=== PATIENT | female | born 1930 | race Caucasian/White ===

== ENCOUNTER 2019-02-03 19:53 | Emergency (ER) | payer OTHER, MEDICAID ==
[~2019-02-03] VITALS: Ht 167.6 cm; Wt 59.0 kg
--- NOTE | 2019-02-03 20:00 | NUR ---
ED Nurse Note: PT had syncopal episode while on the toilet. unwitnessed, did not hit head. From [facility]. Pt is AO x 2 times, VSS, on room air no distress. REBEKAH seen Pt at bedside.
--- NOTE | 2019-02-03 20:26 | NUR ---
ED Nurse Note: Lab called for assist with draw.
--- NOTE | 2019-02-03 21:45 | NUR ---
ED Nurse Note: Pt is DNR and comfort care status, Lab order canceled.
[2019-02-03 22:02] VITALS: BP 131/66
--- NOTE | 2019-02-03 22:22 | NUR ---
ED Nurse Note: Report given to SNF RN Raul Pt will return back SNF.
[2019-02-03 23:59] VITALS: BP 154/83
--- NOTE | 2019-02-04 | NUR ---
ED Nurse Note: EMT [employer] picker/puller Pt back to SNF. Report given to EMT Berry, Pt's belongings given to EMT.
--- NOTE | 2019-02-04 00:02 | Emergency Room Report ---
History of Present Illness General Chief Complaint: Syncope Source: EMS Present Illness HPI Patient is a 88 year old female who presented after syncopal episode. Patient had been noted to be less responsive. She had prior history of metastatic breast cancer. Per patient's paperwork patient had previously requested comfort measures only and no artificial nutrition.History was limited by mental status. Allergies: Coded Allergies: No Known Allergies (Unverified , 02/03/19) Patient History Past Medical History: see triage record Now: No Reviewed Nursing Documentation: PMH: Agreed; PSxH: Agreed Nursing Documentation-PMH Past Medical History: No History, Except For History Of Psychiatric Problem: Yes - anxiety, dementia, depression Review of Systems All Other Systems: limited - by mental status Physical Exam Vital Signs Date Time Temp Pulse Resp B/P (MAP) Pulse Ox O2 Delivery O2 Flow Rate FiO2 02/03/19 19:46 97.9 72 18 129/52 (77) 95 Room Air General Appearance: mild distress, Chronically Ill ENT: dry mucus membranes Neck: limited range of motion Respiratory: normal inspection, no accessory muscle use, decreased breath sounds Cardiovascular #1: normal inspection, no edema Gastrointestinal: normal inspection, soft Musculoskeletal: normal inspection Neurologic: normal inspection, responsive Psychiatric: normal inspection Skin: no rash Medical Decision Making Diagnostic Impression: Primary Impression: Syncope Additional Impressions: Dehydration Metastasis from breast cancer ER Course Patient presented for syncopal episode. Per patient POLST patient was comfort measures only. Patient does not appear in any acute distress. She was noted to be somewhat somnolent. Patient will be discharged back to facility . She is to return if needs cannot be met at facility. Last Vital Signs Date Time Temp Pulse Resp B/P (MAP) Pulse Ox O2 Delivery O2 Flow Rate FiO2 02/03/19 22:02 98.4 69 18 131/66 98 Room Air Status: improved Disposition: XFER SNF Condition: Serious Referrals: Phillip Renteria MD (PCP) Patient Instructions: Syncope Additional Instructions: Return if comfort measures cannot be met in facility Luis F Jones MD Feb 04, 2019 00:02
[2019-02-04 00:04] VITALS: BP 154/83
== END 2019-02-04 00:08 ==
LOC: EDBD 19:53 → EMR 20:29
DX: C50.919 Malignant neoplasm of unspecified site of unspecified female breast (principal); C79.9 Secondary malignant neoplasm of unspecified site; R55 Syncope and collapse; E86.0 Dehydration; F41.9 Anxiety disorder, unspecified; F32.9 Major depressive disorder, single episode, unspecified; F03.90 Unspecified dementia, unspecified severity, without behavioral disturbance, psychotic disturbance, mood disturbance, and anxiety
CPT/HCPCS: 80053; 84443; 85610; 85730; 99284

== ENCOUNTER 2019-10-27 20:04 | Emergency (ER) | payer MEDICARE, MEDICAID ==
[~2019-10-27] VITALS: Ht 160 cm; Wt 59.0 kg
[2019-10-27 20:10] VITALS: BP 110/48
[2019-10-27] MEDS ORDERED: DEPAKOTE250 MG PO (20:19)
[2019-10-27] MEDS ORDERED: ATORVASTATIN CA40 MG ORAL (20:19)
[2019-10-27] MEDS ORDERED: COLACE100 MG ORAL (20:19)
[2019-10-27] MEDS ORDERED: ASPIR 8181 MG ORAL (20:19)
[2019-10-27] MEDS ORDERED: LISINOPRIL10 MG ORAL (20:19)
[2019-10-27] MEDS ORDERED: FERROUS SULFAT325 MG ORAL (20:19)
[2019-10-27] MEDS ORDERED: LEXAPRO10 MG ORAL (20:19)
[2019-10-27 21:11] LABS: BASOPHILS % (AUTO) 0.8 % (0.0-2.0); EOSINOPHILS % (AUTO) 0.2 % (0.0-3.0); HEMATOCRIT 33.6 % (37.0-47.0); LYMPHOCYTES % (AUTO) 18.7 % (20.0-45.0); MEAN CORPUSCULAR VOLUME 82 FL (80-99); MONOCYTES % (AUTO) 10.4 % (1.0-10.0); NEUTROPHILS % (AUTO) 69.9 % (45.0-75.0); PLATELET COUNT 200 K/UL (150-450); RED BLOOD COUNT 4.11 M/UL (4.20-5.40); RED CELL DISTRIBUTION WIDTH 15.6 % (11.6-14.8); WHITE BLOOD COUNT 5.8 K/UL (4.8-10.8)
[2019-10-27 21:27] LABS: ANION GAP 10 mmol/L (5-15); BLOOD UREA NITROGEN 31 mg/dL (7-18); CARBON DIOXIDE 26 MMOL/L (21-32); CHLORIDE 102 MMOL/L (98-107); CREATININE 2.2 MG/DL (0.55-1.30); POTASSIUM 4.7 MMOL/L (3.5-5.1); SODIUM 138 MMOL/L (136-145)
[2019-10-27 21:39] LABS: BILIRUBIN, URINE NEGATIVE (NEGATIVE); GLUCOSE, URINE (UA) NEGATIVE (NEGATIVE); KETONES,URINE 2+ (NEGATIVE); LEUKOCYTE ESTERASE ,URINE 2+ (NEGATIVE); NITRITE,URINE NEGATIVE (NEGATIVE); PH,URINE 5 (4.5-8.0); PROTEIN,URINE 2+ (NEGATIVE); UROBILINOGEN,URINE NORMAL MG/DL (0.0-1.0)
[2019-10-27 21:40] LABS: APPEARANCE,URINE SLIGHTLY CLOUDY; COLOR,URINE YELLOW
[2019-10-27 21:41] LABS: ALANINE AMINOTRANSFERASE 12 U/L (12-78); ALBUMIN 2.6 G/DL (3.4-5.0); ALBUMIN/GLOBULIN RATIO 0.6 (1.0-2.7); ALKALINE PHOSPHATASE 56 U/L (46-116); ASPARTATE AMINO TRANSFERASE 40 U/L (15-37); BILIRUBIN,TOTAL 0.6 MG/DL (0.2-1.0); CKMB 2.7 NG/ML (0.0-3.6); CREATINE KINASE 162 U/L (26-308)
[2019-10-27 22:00] VITALS: BP 130/65
[2019-10-27] MEDS ORDERED: Azithromycin 500 MG in NS 275 ML IV ONE (22:00)
[2019-10-27] MEDS ORDERED: Hydroxychloroquine Fact Sheet MISC ONE ×2 (22:15→23:00)
[2019-10-27 23:00] VITALS: BP 140/75
[2019-10-27] MEDS ORDERED: cefTRIAXone 1 GM in NS 55 ML IVPB ONE (23:00)
--- NOTE | 2019-10-27 23:37 | Emergency Room Report ---
History of Present Illness General Chief Complaint: Altered Level of Consciousness Source: Patient, Family Member Present Illness HPI Patient is an 89-year-old female brought in by EMS after increased altered level of consciousness and difficulty with breathing. Patient had been brought in from [facility]. Prior history of chronic debilitation previously been comfort care only per paperwork. Patient been followed by Dr. Renteria. Reportedly her roommate had tested positive for coronavirus infection.History is limited by patient's mental status. Apparently she had been having increased work of breathing today. Allergies: Coded Allergies: No Known Allergies (Unverified , 02/03/19) COVID-19 Screening Contact w/high risk pt: No Recent Travel to affected area: No Experienced COVID-19 symptoms?: No COVID-19 Testing performed BARIATRIC NURSE: No Patient History Past Medical History: see triage record Now: No Reviewed Nursing Documentation: PMH: Agreed; PSxH: Agreed Nursing Documentation-PMH Hx Hypertension: Yes Hx Diabetes: Yes Review of Systems All Other Systems: negative except mentioned in HPI Physical Exam Vital Signs Date Time Temp Pulse Resp B/P (MAP) Pulse Ox O2 Delivery O2 Flow Rate FiO2 10/27/19 20:05 61 18 110/48 (68) 97 Nasal Cannula 6.0 General Appearance: mild distress, Chronically Ill Eyes: bilateral eye other ENT: hearing grossly normal Respiratory: lungs clear, other - Slight tachypnea Cardiovascular #1: normal inspection, no edema Gastrointestinal: normal inspection, soft Musculoskeletal: normal inspection Neurologic: alert, motor strength/tone normal, oriented x3, other Skin: no rash Medical Decision Making Diagnostic Impression: Primary Impression: Altered level of consciousness Additional Impressions: Suspected 2019 novel coronavirus infection Urinary tract infection ER Course Patient presented for increased difficulty with breathing. Differential diagnosis include was not limited to pneumonia, urinary tract infection, coronavirus infection among others. Because of complexity of patient's case laboratory tests and imaging studies were ordered. Patient had a pulse which shows that the patient is comfort measures only. Patient's level of care was discussed with her family member Quique Franklin who agreed to laboratory testing and imaging studies. Patient chest x-ray showed bilateral patchy infiltrates. Patient started on supplemental oxygen. She was given IV fluids. She was noted to have some improvement in her mental status. Patient is given IV Rocephin due to some urinary infection. Dr. swami Locke was contacted for infectious disease consult and recommended hydroxychloroquine which approved of it appears to have significant knowledge of current hydroxychloroquine study results. Dr. Renteria was contacted and requested the patient be admitted to [facility]. Dr. Caballero was contacted for inpatient management due to covering physician for [facility]. Patient was also discussed with covering physician from patient's insurance [facility]. Patient is currently stable. I discussed the patient's case at length with her nephew. Labs Test 10/27/19 20:50 10/27/19 21:20 10/27/19 23:25 White Blood Count 5.8 K/UL (4.8-10.8) Red Blood Count 4.11 M/UL (4.20-5.40) Hemoglobin 10.0 G/DL (12.0-16.0) Hematocrit 33.6 % (37.0-47.0) Mean Corpuscular Volume 82 FL (80-99) Mean Corpuscular Hemoglobin 24.3 PG (27.0-31.0) Mean Corpuscular Hemoglobin Concent 29.8 G/DL (32.0-36.0) Red Cell Distribution Width 15.6 % (11.6-14.8) Platelet Count 200 K/UL (150-450) Mean Platelet Volume 5.4 FL (6.5-10.1) Neutrophils (%) (Auto) 69.9 % (45.0-75.0) Lymphocytes (%) (Auto) 18.7 % (20.0-45.0) Monocytes (%) (Auto) 10.4 % (1.0-10.0) Eosinophils (%) (Auto) 0.2 % (0.0-3.0) Basophils (%) (Auto) 0.8 % (0.0-2.0) Sodium Level 138 MMOL/L (136-145) Potassium Level 4.7 MMOL/L (3.5-5.1) Chloride Level 102 MMOL/L (98-107) Carbon Dioxide Level 26 MMOL/L (21-32) Anion Gap 10 mmol/L (5-15) Blood Urea Nitrogen 31 mg/dL (7-18) Creatinine 2.2 MG/DL (0.55-1.30) Estimat Glomerular Filtration Rate 21.0 mL/min (>60) Glucose Level 84 MG/DL (74-106) Lactic Acid Level 1.40 mmol/L (0.4-2.0) Calcium Level 8.0 MG/DL (8.5-10.1) Ferritin 143 NG/ML (8-388) Total Bilirubin 0.6 MG/DL (0.2-1.0) Aspartate Amino Transf (AST/SGOT) 40 U/L (15-37) Alanine Aminotransferase (ALT/SGPT) 12 U/L (12-78) Alkaline Phosphatase 56 U/L (46-116) Total Creatine Kinase 162 U/L (26-308) Creatine Kinase MB 2.7 NG/ML (0.0-3.6) Creatine Kinase MB Relative Index 1.6 Troponin I 0.007 ng/mL (0.000-0.056) C-Reactive Protein, Quantitative 22.3 mg/dL (0.00-0.90) Pro-B-Type Natriuretic Peptide 3977 pg/mL (0-125) Total Protein 6.6 G/DL (6.4-8.2) Albumin 2.6 G/DL (3.4-5.0) Globulin 4.0 g/dL Albumin/Globulin Ratio 0.6 (1.0-2.7) Urine Color Yellow Urine Appearance Slightly cloudy Urine pH 5 (4.5-8.0) Urine Specific [place] 1.030 (1.005-1.035) Urine Protein 2+ (NEGATIVE) Urine Glucose (UA) Negative (NEGATIVE) Urine Ketones 2+ (NEGATIVE) Urine Blood Negative (NEGATIVE) Urine Nitrite Negative (NEGATIVE) Urine Bilirubin Negative (NEGATIVE) Urine Urobilinogen Normal MG/DL (0.0-1.0) Urine Leukocyte Esterase 2+ (NEGATIVE) Urine RBC 0 /HPF (0 - 2) Urine WBC 15-20 /HPF (0 - 2) Urine Squamous Epithelial Cells Many /LPF (NONE/OCC) Urine Amorphous Sediment Moderate /LPF (NONE) Urine Bacteria Moderate /HPF (NONE) Urine Granular Casts 0-2 /LPF (NONE) Last Vital Signs Date Time Temp Pulse Resp B/P (MAP) Pulse Ox O2 Delivery O2 Flow Rate FiO2 10/27/19 20:05 61 18 110/48 (68) 97 Nasal Cannula 6.0 Status: unchanged Disposition: ADMITTED INPATIENT Condition: Stable Referrals: Phillip Renteria MD (PCP) Luis F Jones MD Oct 27, 2019 23:37
[2019-10-28 01:20] VITALS: BP 142/60
--- NOTE | 2019-10-28 09:05 | Diagnostic Imaging Report ---
Procedure: XRAY Chest 1v Reason for study: Shortness of breath. Comparison films: None. FINDINGS: A single one view chest is obtained. Vascularity is normal. There are bilateral infiltrates. Cardiac and mediastinal silhouette are within normal limits. CP angles are sharp. Calcified lymph nodes noted in the right axilla. IMPRESSION: Bilateral infiltrates.
== END 2019-10-28 01:20 | disposition short-term general hospital (02) ==
LOC: EDBD 20:04 → EMR 21:18
DX: U07.1 COVID-19 (principal); I10 Essential (primary) hypertension; E11.9 Type 2 diabetes mellitus without complications; R41.82 Altered mental status, unspecified; N39.0 Urinary tract infection, site not specified; R06.82 Tachypnea, not elsewhere classified
CPT/HCPCS: 36415; 71045; 80053; 81003; 82550; 82553; 82728; 83605; 83880; 84484; 85025; 85379; 86140; 87040; 87086; 87181; 93005; 96365; 99284; J0696; J7040